=== PATIENT | female | born 1995 | race Caucasian/White ===

== ENCOUNTER → 2020-06-30 10:45 | Outpatient (BNVA) | payer SELFPAY | PROVIDERS: Family Provider Nurse Practitioner; Visit Provider Obstetrics & Gynecology | DX: Z12.4 Encounter for screening for malignant neoplasm of cervix (principal) | CPT/HCPCS: 88175 ==

== ENCOUNTER 2022-11-17 11:18 | Emergency (ER) | payer OTHER, SELFPAY ==
[2022-11-17 11:17] VITALS: BMI 43.2
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
[2022-11-17 11:30] VITALS: BP 153/99; PULSE 91; RESP 16; TEMP 37.1; O2SAT 97
== END 2022-11-17 11:50 | disposition home or self-care (01) ==
PROVIDERS: Emergency Provider Emergency Medicine
DX: M54.9 Dorsalgia, unspecified (principal); Y00.XXXA Assault by blunt object, initial encounter
CPT/HCPCS: 99282